=== PATIENT | male | born 1960 | race Caucasian/White ===

== ENCOUNTER 2020-12-29 10:49 | Inpatient (IN) | payer OTHER ==
[~2020-12-29] VITALS: Ht 180.3 cm; Wt 104.1 kg
[2020-12-29 10:51] VITALS: BP 75/50; BP 86/59
[2020-12-29 11:30] LABS: ABSOLUTE LYMPHOCYTES 0.5 thou/uL (0.8-5.3); ABSOLUTE MONOCYTES 0.7 thou/uL (0.0-1.2); BASOPHILS 0.4 %; HEMATOCRIT 45.1 % (42.0-52.0); HEMOGLOBIN 15.6 gm/dL (14.0-18.0); LYMPHOCYTES 8.1 %; MCH 31.9 pg (26.0-34.0); MCHC 34.5 g/dL (28.0-37.0); MCV 92.2 fL (80.0-100.0); MONOCYTES 10.6 %; MPV 7.6 fl. (7.2-11.1); NUCLEATED RBCS 0 /100WBC; PLATELET COUNT* 271 thou/uL (150-400); POLYS 80.9 %; RDW-CV 13.3 % (10.5-14.5); WBC 6.2 thou/uL (4.0-11.0)
[2020-12-29 11:44] LABS: POTASSIUM 3.9 mmol/L (3.5-5.1)
[2020-12-29 11:48] LABS: ALBUMIN 2.9 g/dL (3.4-5.0); TOTAL BILIRUBIN 0.4 mg/dL (<0.1-1.0); TOTAL PROTEIN 6.5 g/dL (6.4-8.2)
--- NOTE | 2020-12-29 13:13 | NUR ---
PT GIVEN LUNCH TRAY AT THIS TIME.
[2020-12-29 17:33] VITALS: BP 97/68
[2020-12-29 18:33] VITALS: BP 109/71
--- NOTE | 2020-12-29 19:29 | NUR ---
PT. ADMITTED TO FLOOR FROM ER, BP STABILIZED TO HIGH 100S SBP, MAP IN 80S. DENIES PAIN OR DISCOMFORT, O2 3L-SATS MID 90%, ADMISSION ASSSESSMENTS COMPLETE. CALL LIGHT AND PERSONAL BELONGINGS PLACED WITHIN REACH. PT. IN STABLE CONDITION, IN BED RESTING, AT SHIFT CHANGE.
[2020-12-29 19:30] VITALS: BP 111/84
[2020-12-30] VITALS: BP 128/74
[2020-12-30 04:00] VITALS: BP 131/61
--- NOTE | 2020-12-30 06:15 | NUR ---
PT SLEPT MOST OF SHIFT. ASSESSMENT DOCUMENTED. MEDS GIVEN PER E-MAR. IV PATENT, FLUIDS INFUSING. ISOLATION MAINTAINED. NO REPORTS OF PAIN. PT ABLE TO MAKE NEEDS KNOWN. WILL CONTINUE WITH PLAN OF CARE.
--- NOTE | 2020-12-30 07:16 | NUR ---
PT CONVERTED BACK TO SINUS RHYTHM ABOUT 0310 THIS AM.
[2020-12-30 07:21] LABS: URINE BILIRUBIN NEGATIVE (Negative); URINE BLOOD 1+ (Negative); URINE CLARITY CLEAR; URINE COLOR YELLOW; URINE GLUCOSE-RANDOM NEGATIVE (Negative); URINE KETONES NEGATIVE (Negative); URINE LEUKOCYTES-REFLEX NEGATIVE (Negative); URINE NITRITE-REFLEX NEGATIVE (Negative); URINE PROTEIN TRACE (Negative); URINE SPECIFIC GRAVITY 1.025 (1.005-1.030)
[2020-12-30 07:23] LABS: SQUAMOUS NONE SEEN /LPF (0-3); URINE RBC 0-2 Rare /HPF (0-2); URINE WBC-REFLEX None Seen /HPF (0-5)
[2020-12-30 07:24] LABS: CASTS None Seen /LPF (None Seen); CRYSTALS None Seen /LPF (None Seen); MUCUS None Seen strn/LPF (None Seen)
[2020-12-30 07:54] LABS: ABSOLUTE LYMPHOCYTES 0.7 thou/uL (0.8-5.3); ABSOLUTE MONOCYTES 0.6 thou/uL (0.0-1.2); ABSOLUTE NEUTROPHILS 3.7 thou/uL (1.6-8.1); BASOPHILS 0.2 %; HEMATOCRIT 40.9 % (42.0-52.0); HEMOGLOBIN 13.8 gm/dL (14.0-18.0); LYMPHOCYTES 13.1 %; MCH 31.2 pg (26.0-34.0); MCHC 33.7 g/dL (28.0-37.0); MCV 92.8 fL (80.0-100.0); MONOCYTES 11.8 %; MPV 7.5 fl. (7.2-11.1); NUCLEATED RBCS 0 /100WBC; PLATELET COUNT* 272 thou/uL (150-400); POLYS 74.9 %; RDW-CV 13.2 % (10.5-14.5)
[2020-12-30 08:00] VITALS: BP 106/78
[2020-12-30 08:39] LABS: ANION GAP 6 mmol/L (7-16); BUN 12 mg/dL (7-18); CALCIUM 7.8 mg/dL (8.5-10.1); CHLORIDE 102 mmol/L (98-107); CHOLESTEROL 104 mg/dL (<200); CO2 29 mmol/L (21-32); CREATININE 0.8 mg/dL (0.6-1.3); GLUCOSE 121 mg/dL (70-99); HDL CHOLESTEROL 36 mg/dL (>40); LDL CHOLESTEROL 51 mg/dL (<100); POTASSIUM 4.3 mmol/L (3.5-5.1); SODIUM 137 mmol/L (136-145); TC:HDL 2.9 Ratio (Not establshd); TRIGLYCERIDE 86 mg/dL (<150); VLDL 17 mg/dL (<40)
[2020-12-30 08:42] LABS: SERUM ASSESSMENT Clear
--- NOTE | 2020-12-30 10:39 | EKG ---
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 : 1960 Requested By: Rico Brown Order Number: [id number] MD: Aubrey Beltrán Measurements Intervals [place] Rate: 151 P: CT: QRS: 67 QRSD: 59 T: 257 QT: 300 QTc: 476 Interpretive Statements Atrial fibrillation Borderline repolarization abnormality Borderline prolonged QT interval No previous ECG available for comparison Electronically Signed On 12-30-2020 10:39:49 CDT by Aubrey Beltrán [email or web address] <ELECTRONICALLY SIGNED> By: Aubrey Beltrán MD, [facility] 12/30/20 1039 1105 1105 Aubrey Beltrán MD, [facility] /EPI
[2020-12-30 13:42] VITALS: BP 102/82
[2020-12-30 16:00] VITALS: BP 104/74
[2020-12-30 20:00] VITALS: BP 100/70
--- NOTE | 2020-12-30 20:00 | NUR ---
RECEIVED REPORT AND ASSUMED CARE OF PT, ASSESSMENT COMPLETED. PT SOA, HOB ELEVATED, O2 ON AT 2L/NC. HAVING OCC MOIST COUGH. TELEMETRY ON SHOWING SR. WILL CONT TO MONITOR AND ASSIST NEEDED.
[2020-12-31] VITALS: BP 102/59
[2020-12-31 05:12] LABS: HEMATOCRIT 38.1 % (42.0-52.0); HEMOGLOBIN 13.1 gm/dL (14.0-18.0); MCH 31.5 pg (26.0-34.0); MCHC 34.2 g/dL (28.0-37.0); MCV 91.8 fL (80.0-100.0); MPV 7.7 fl. (7.2-11.1); RBC 4.15 mil/uL (4.50-6.00); RDW-CV 12.8 % (10.5-14.5); WBC 7.5 thou/uL (4.0-11.0)
[2020-12-31 05:31] LABS: CALCIUM 8.1 mg/dL (8.5-10.1); CREATININE 0.8 mg/dL (0.6-1.3); POTASSIUM 4.1 mmol/L (3.5-5.1)
--- NOTE | 2020-12-31 05:54 | NUR ---
PT FLUSTRATED ABOUT BEING WOKE FREQ BETWEEN NURSING CHECKS AND IV MACHINE BEEPING. ALLOWED TO SLEEP LONGER AND DID NOT TAKE VS UNTIL LATE. TELEMETRY CONT TO SHOW SR. PT STILL SOA WITH HOB ELEVATED AND O2 ON. CONT HAVING MOIST OCC PROD COUGH. HS GOALS OF REST AND SAFETY ACHIEVED. HOURLY ROUNDING OBSERVED.
[2020-12-31 09:03] VITALS: BP 113/70
[2020-12-31 12:00] VITALS: BP 106/71
--- NOTE | 2020-12-31 13:42 | 2DMMODE ---
[place] [address] 2 D/M-MODE ECHOCARDIOGRAM Name: ZAIRE SINGER Room: [address] IN [facility]#: [id number] Admission: 12/29/20 Attend Phys: Zaire Powell Discharge: Date of : 60 Date of Service: 12/31/20 1342 Report #: [id number] THIS REPORT FOR: cc: FAM - No family physician/PCP FAM - No family physician/PCP Juventino Godfrey MD [facility] ~ APPROVED REPORT Study performed: 12/31/2020 11:40:11 EXAM: Comprehensive 2D, Doppler, and color-flow Echocardiogram Patient Location: In-Patient Room #: [facility] Status: routine BSA: 2.26 HR: 105 bpm BP: 102/59 mmHg Rhythm: NSR Other Information Study Quality: Good Indications Atrial Fibrillation 2D Dimensions IVSd: 11.79 (7-11mm) LVOT Diam: 20.80 (18-24mm) LVDd: 49.73 mm PWd: 10.84 (7-11mm) Ascending Ao: 29.67 (22-36mm) LVDs: 35.63 (25-40mm) Aortic Root: 34.92 mm Volumes Left Atrial Volume (Systole) LA ESV Index: 22.20 mL/m2 Aortic Valve AoV Peak Damaso.: 1.65 m/s AO Peak Gr.: 10.89 mmHg LVOT Max P.83 mmHg AO Mean Gr.: 5.89 mmHg LVOT Mean P.22 mmHg LVOT Max V: 1.10 m/s AO V2 VTI: 29.90 cm LVOT Mean V: 0.68 m/s DONNIE (VTI): 2.50 cm2 LVOT V1 VTI: 21.98 [place] [address] 2 D/M-MODE ECHOCARDIOGRAM Name: ZAIRE SINGER Room: [address] IN ..#: [id number] Admission: 12/29/20 Attend Phys: Zaire Powell Discharge: Date of : 60 Date of Service: 12/31/20 1342 Report #: [id number] Mitral Valve E/A Ratio: 1.28 MV Decel. Time: 166.47 ms MV E Max Damaso.: 0.88 m/s MV PHT: 48.27 ms MVA (PHT): 4.56 cm2 Pulmonary Valve PV Peak Damaso.: 1.01 m/s PV Peak Gr.: 4.12 mmHg Tricuspid Valve RAP Estimate: 5.00 mmHg TR Peak Gr.: 30.79 mmHg RVSP: 35.00 mmHg PA Pressure: 35.00 mmHg Left Ventricle The left ventricle is normal size. There is normal LV segmental wall motion. There is normal left ventricular wall thickness. Left ventricular systolic function is normal. The left ventricular ejection fraction is within the normal range. LVEF is 55-60%. The left ventricular diastolic function is normal. Right Ventricle The right ventricle is normal size. The right ventricular systolic function is normal. Atria The left atrium size is normal. The right atrium size is normal. Aortic Valve The aortic valve is normal in structure. No aortic regurgitation is present. There is no aortic valvular stenosis. Mitral Valve The mitral valve is normal in structure. Trace mitral regurgitation. No evidence of mitral valve stenosis. Tricuspid Valve The tricuspid valve is normal in structure. Trace tricuspid regurgitation. Mild pulmonary hypertension. Pulmonic Valve The pulmonary valve is normal in structure. There is no pulmonic [place] [address] 2 D/M-MODE ECHOCARDIOGRAM Name: ZAIRE SINGER Room: [address] IN [facility]#: [id number] Admission: 12/29/20 Attend Phys: Zaire Powell Discharge: Date of : 60 Date of Service: 12/31/20 1342 Report #: [id number] Great Vessels The aortic root is normal in size. IVC is normal in size and collapses >50% with inspiration. Pericardium There is no pericardial effusion. <Conclusion> The left ventricle is normal size. There is normal left ventricular wall thickness. Left ventricular systolic function is normal. The left ventricular ejection fraction is within the normal range. LVEF is 55-60%. The left ventricular diastolic function is normal. The right ventricle is normal size. The left atrium size is normal. The aortic valve is normal in structure. The mitral valve is normal in structure. The tricuspid valve is normal in structure. Trace tricuspid regurgitation. Mild pulmonary hypertension. IVC is normal in size and collapses >50% with inspiration. There is no pericardial effusion. There is normal LV segmental wall motion. <ELECTRONICALLY SIGNED> By: Juventino Godfrey MD, FACC 12/31/20 1342 1342 1342 Juventino Godfrey MD, FACC /INF
--- NOTE | 2020-12-31 13:51 | EKG ---
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: RAFAT : 1960 Requested By: Zaire Powell Order Number: [id number] Hortensia MD: Juventino Godfrey Measurements Intervals [place] Rate: 75 P: 84 IN: 143 QRS: 62 QRSD: 83 T: 58 QT: 368 QTc: 411 Interpretive Statements Sinus rhythm Low voltage, extremity leads Compared to ECG 12/29/2020 11:05:00 Low QRS voltage now present Atrial fibrillation no longer present Electronically Signed On 12-31-2020 13:50:59 CDT by Juventino Godfrey [email or web address] <ELECTRONICALLY SIGNED> By: Juventino Godfrey MD, [facility] 12/31/20 1350 1131 1131 Juventino Godfrey MD, [facility] /EPI
--- NOTE | 2020-12-31 14:02 | EKG ---
[place] [address] ELECTROCARDIOGRAM REPORT Name: SINGERZAIRE LOPEZ Room: [address] ADM IN [facility].#: [id number] Admission: 12/29/20 Attend Phys: Zaire Powell Discharge: Date of : 60 Date of Service: 12/31/20 1236 Report #: [id number] THIS REPORT FOR: //name// [facility] Test Date: 2020-12-31 Test Time: 12:36:34 Pat Name: ZAIRE SINGER Department: Room: [address] Gender: M Mobility Developer: IVANNA : 1960 Requested By: Akua Sexton Order Number: [id number] Hortensia MD: Juventino Godfrey Measurements Intervals [place] Rate: 73 P: 73 [place]: 141 QRS: 56 QRSD: 81 T: 59 QT: 385 QTc: 425 Interpretive Statements Sinus rhythm Low voltage, precordial leads Compared to ECG 12/30/2020 11:31:33 No significant changes Electronically Signed On 12-31-2020 14:02:02 CDT by Juventino Godfrey [email or web address] <ELECTRONICALLY SIGNED> By: Juventino Godfrey MD, FACC 12/31/20 1402 1236 1236 Juventino Godfrey MD, [facility] /EPI
[2020-12-31 16:00] VITALS: BP 146/83
--- NOTE | 2020-12-31 16:09 | NUR ---
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 PT USES 0 DME. PT IS UNINSURED. MED ASSIST COMPLETED MEDICAID ASSESSMENT AND PT DOES NOT QUALIFY FOR MEDICAID D/T HIS INCOME. CM WILL REMAIN AVAILABLE TO ASSIST AND FOLLOW NEEDED.
[2020-12-31 17:42] VITALS: BP 124/87; BP 127/77; BP 135/82
--- NOTE | 2020-12-31 18:02 | NUR ---
Pt received dose of Remdesivir this afternoon, and receiving 1 unit of convalescent plasma at this time. On O2 @ 3L per NC. VSS. 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 Updated pt's daughter (Francia Brownlee--[phone]) on pt's status per pt request. Dtr states she is director community health nursing. Will continue to monitor.
[2020-12-31 21:00] VITALS: BP 118/78
--- NOTE | 2020-12-31 21:00 | NUR ---
RECEIVED REPORT AT 1930 AND ASSUMED CARE OF PT, ASSESSMENT COMPLETED AT THIS TIME. PT HAVING A MOIST COUGH, O2 ON AT 3L/NC. BECOMES VERY DYSPNEIC WITH ANY ACTIVITY AND DECREASED O2 SAT'S. TELEMETRY ON SHOWING SR WITH PAC. PLASMA COMPLETED EARLIER WITHOUT INCIDENT. WILL CONT TO MONITOR AND ASSIST NEEDED.
[2021-01-01 04:00] VITALS: BP 120/70
[2021-01-01 05:58] LABS: HEMATOCRIT 37.2 % (42.0-52.0); HEMOGLOBIN 12.9 gm/dL (14.0-18.0); MCH 32.2 pg (26.0-34.0); MCHC 34.8 g/dL (28.0-37.0); MCV 92.4 fL (80.0-100.0); MPV 7.2 fl. (7.2-11.1); RBC 4.02 mil/uL (4.50-6.00); RDW-CV 12.8 % (10.5-14.5); WBC 8.3 thou/uL (4.0-11.0)
[2021-01-01 06:05] LABS: CALCIUM 8.2 mg/dL (8.5-10.1); CREATININE 0.7 mg/dL (0.6-1.3)
--- NOTE | 2021-01-01 06:10 | NUR ---
SLEPT WELL TONIGHT. PT CONT TO BE SOA WITH EXERTION. VOIDING PER URINAL. NO CHANGE IN ASSESSMENT. TELEMETRY CONT TO SHOW SR WITH PAC. HS GOALS OF REST, SAFETY AND OXYGENATION ACHIEVED. HOURLY ROUNDING OBSERVED.
[2021-01-01 08:40] VITALS: BP 108/75
[2021-01-01 11:19] VITALS: BP 101/66
[2021-01-01 12:00] VITALS: BP 109/79
--- NOTE | 2021-01-01 14:09 | EKG ---
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 01/01/21 1409 1005 1005 Juventino Godfrey MD, [facility] /EPI
--- NOTE | 2021-01-01 14:59 | NUR ---
PLAN OF CARE: PT COVID POSITIVE AND REMAINS ON IV ABT'S AND TELE STATUS. PT IS UNINSURED AND DOES NOT QUALIFY FOR MEDICAID D/T HIS INCOME. D/C PLANNING NEEDS FOR THIS PT REMAIN TBD AT THIS TIME. CM WILL REMAIN AVAILABLE TO ASSIST AND FOLLOW NEEEDED.
[2021-01-01 16:00] VITALS: BP 117/85
--- NOTE | 2021-01-01 18:45 | NUR ---
Rhythm per monitor oscillating between SR and Afib. HR when in Afib runs 100s-120s. BP has been 100s-120s/60s-70s. Cardiology aware, and has ordered metoprolol IV prn, though no doses given during this shift. Pt remains on Sotalol BID (see MAR). Pt reports he feels weak today, but up ad robby in room. O2 at 4L per NC, and humidifier added this morning. Pt did eat better today for breakfast and lunch, but states poor appetite this evening for supper. Encouraged to be up in chair, turn frequently, and cough/deep breathe about every 1-2 hours while awake. Cough productive of thick sputum at times. Will continue to monitor.
[2021-01-01 20:00] VITALS: BP 125/81
[2021-01-02] VITALS: BP 143/73
[2021-01-02 04:02] VITALS: BP 151/70
--- NOTE | 2021-01-02 06:20 | NUR ---
ASSUMED PT CARE AT APPROX. 1999. PT IS A/OX4. VSS. PT IS COVID+ AND IS ON CONTACT PRECAUTIONS. PT HAD INTERMITTENT AFIB W/ HR BETWEEN 90-120. PT IS ORDERED SOTOLOL BID, SEE EMAR. PT CONVERTED TO SR/ST DURING THE NOC. CARDIOLOGY HAS BEEN CONSULTED AND IS AWARE OF PT'S CARDIAC FUNCTION. PT IS ON 4L NC W/ HUMIDIFIER. PTS LUNG SOUNDS ARE DIMINISHED. PT HAS A PRODUCTIVE COUGH AND REPORTED THICK SPUTUM. PT IS UP AD ATIF IN ROOM. PT USES URINAL AT BEDSIDE. NO ACUTE FINDINGS NOTED DURING THIS SHIFT. PT HAS BEEN RESTING IN ROOM. NO COMPLAINTS VOICED. FALL PRECAUTIONS IN PLACE FOR SAFEY. HOURLY ROUNDS COMPLETE CHARTED. WILL CONT. TO MONITOR.
[2021-01-02 08:30] VITALS: BP 109/81
[2021-01-02 12:02] VITALS: BP 101/71
--- NOTE | 2021-01-02 16:02 | NUR ---
PLAN OF CARE: PT REMAINS TELE STATUS. PT CURREENTLY REQUIRES 4L OXYGEN. PT IS COVID POSITIVE. PT IS UNINSURED AND RESIDES IN [place] AND THIS MAY PRESENT A BARIER TO D/C IF HE SHOULD NEED ANY EQUIPMENT OR F/U SERVICES AT D/C. CM WILL REMAIN AVAILABLE TO ASSIST AND FOLLOW NEEDED.
[2021-01-02 16:13] VITALS: BP 111/75
--- NOTE | 2021-01-02 18:55 | NUR ---
Pt remains in SR with frequent PACs per monitor. IV abx orders changed this evening. Pt reports feeling a little better today than yesterday. No Afib noted per monitor this shift. VSS. O2 decreased from 4L to 3L per NC. Will continue to monitor.
[2021-01-02 20:00] VITALS: BP 124/91
--- NOTE | 2021-01-02 20:00 | NUR ---
RECEIVED REPORT AND ASSUMED CARE OF PT, ASSESSMENT COMPLETED. O2 ON AT 3L/NC, CONT TO BE SOA ON EXERTION. HAVING OCC MOIST PROD COUGH. TELEMETRY ON SHOWING A FIB/FLUTTER. WILL CONT TO MONITOR AND ASSIST NEEDED.
[2021-01-03] VITALS: BP 126/77
[2021-01-03 04:30] VITALS: BP 124/83
[2021-01-03 04:34] LABS: HEMATOCRIT 37.6 % (42.0-52.0); HEMOGLOBIN 12.9 gm/dL (14.0-18.0); MCH 31.9 pg (26.0-34.0); MCHC 34.3 g/dL (28.0-37.0); MCV 93.2 fL (80.0-100.0); MPV 7.4 fl. (7.2-11.1); RBC 4.03 mil/uL (4.50-6.00); RDW-CV 12.8 % (10.5-14.5); WBC 11.8 thou/uL (4.0-11.0)
[2021-01-03 05:16] LABS: CREATININE 0.8 mg/dL (0.6-1.3); POTASSIUM 3.8 mmol/L (3.5-5.1)
--- NOTE | 2021-01-03 06:36 | NUR ---
AWAKE FREQ TONIGHT. CONT HAVING MOIST COUGH. O2 SAT MAINTAINED ON 3L/NC. VOIDING WITHOUT DIFFICULTY. TELEMETRY SHOWING INITALLY A-FIB/FLUTTER BUT CONVERTED TO SR. HS GOALS OF REST AND SAFETY PARTICALLY ACHIEVED. HOURLY ROUNDING OBSERVED.
[2021-01-03 08:00] VITALS: BP 122/77
--- NOTE | 2021-01-03 13:56 | NUR ---
PLAN OF CARE: PT REMAINS TELE STATUS. PT CONTINUES TO NEED OXYGEN AT 3L. PHYSICIAN INFORMS OF CONCERNS FOR PT TO D/C AND DRIVE HIS 18 [address] TRUCK BACK TO [place] WITH HIS OXYGEN NEEDS. CM SPOKE TO THE PT TO DISCUSS THIS AND HE INFORMS THAT HE HAS AN OPEN [employer] COMP CASE AND THAT THEY ARE GOING TO COVER HIS HOSPITAL STAY AND D/C NEEDS. CM INFORMED THE CM UR NURSE OF THIS INFO WELL THE REFERENCE NUMBER AND CONTACT INFO. CM WILL REMAIN AVAILABLE TO ASSIST AND FOLLOW NEEDED. WORK COMP PHONE#: [phone] WORK COMP REF#: [id number]
[2021-01-03 16:22] VITALS: BP 112/81
--- NOTE | 2021-01-03 18:28 | NUR ---
I ASSUMED CARE OF THE PATIENT AT 0700. HE IS ALERT AND ORIENTED X4 AND IS UP AD ATIF. BED IS IN THE LOW LOCKED POSITION AND CALL LIGHT IS IN REACH. PATIENT NEEDS ARE MET IN HOURLY ROUNDING AND PAIN IS DENIED. HE IS PROGRESSING TOWARDS HIS GOAL. WE ARE UNABLE TO SUCCESSFULLY TITRATE OXYGEN TODAY. ISOLATION IS MAINTAINED. HE HAD A LARGE BM. HE REPOSITIONS HIMSELF. WILL CONTINUE TO MONITOR.
[2021-01-03 19:29] VITALS: BP 137/84
[2021-01-03 21:00] VITALS: BP 135/81
[2021-01-04] VITALS: BP 123/78
[2021-01-04 04:00] VITALS: BP 123/76
[2021-01-04 04:51] LABS: HEMOGLOBIN 12.4 gm/dL (14.0-18.0); MCH 32.6 pg (26.0-34.0); MCHC 35.5 g/dL (28.0-37.0); MCV 91.9 fL (80.0-100.0); MPV 7.3 fl. (7.2-11.1); RBC 3.81 mil/uL (4.50-6.00); RDW-CV 12.7 % (10.5-14.5); WBC 10.7 thou/uL (4.0-11.0)
[2021-01-04 05:06] LABS: CALCIUM 8.3 mg/dL (8.5-10.1); CREATININE 0.9 mg/dL (0.6-1.3); POTASSIUM 3.8 mmol/L (3.5-5.1)
--- NOTE | 2021-01-04 06:09 | NUR ---
Alert and oriented x 4. He has been in bed most of the shift. He used the urinal and has had a large amount of output. He did get up independently to the bathroom. He is on 3L n/c and has long tubing to reach the bathroom. he has been coughing at times but it sputum was not observed. He hasn't required anything for pain. Vitals stable, HRRR is NSR. He has slept intermittenly.
[2021-01-04 08:00] VITALS: BP 135/87
[2021-01-04 12:38] VITALS: BP 130/79
--- NOTE | 2021-01-04 15:57 | NUR ---
PLAN OF CARE: PHYSICIAN INFORMS OF PLAN TO WEAN PT'S O2 MUCH POSSIBLE. PT CURRENTLY ON 2L O2 VIA NC. PT WILL LIKELY NEED R.T. REST AND EXERCISE TESTING PRIOR TO D/C TO DETERMINE AMOUNT OF O2 NEEDED FOR PT. PT INFORMED OF THE NEED TO CONTACT HIS EMPLOYER TO DISCUSS HOW THEY CAN ASSIST HIM IN GETTING HOME AND HOW TO GET HIS TRUCK HOME IF HE IS UNABLE TO WEAN FROM O2. CM WILL REMAIN AVAILABLE TO ASSIST AND FOLLOW NEEDED.
[2021-01-04 17:01] VITALS: BP 108/72
--- NOTE | 2021-01-04 18:07 | NUR ---
RECEIVED REPORT AROUND 0715. ASSUMED CARE. VS AND ASSESSMENT CHARTED. IV INTACT LEFT UPPER ARM MIDLINE AND RIGHT FOREARM. HEART MONITOR ATTACHED SR WITH PAC'S. PT UP ADLIB. O2 TURNED DOWN TO 1L. MEDS GIVEN PER SEP. HOURLY ROUNDING PERFORMED. ISOLATION INTACT. COVID POSITIVE. NO PAIN THIS SHIFT. SHOWER TAKEN THIS SHIFT. CALL LIGHT WITH IN REACH. WILL CONTINUE TO MONITOR.
[2021-01-04 20:40] VITALS: BP 138/80
[2021-01-05 00:32] VITALS: BP 137/90
--- NOTE | 2021-01-05 01:58 | NUR ---
ASSUMED CARE OF PT AT 1900. PT IS ALERT AND ORIENTED. VSS. PERRLA. PT IS ON 1 LITER O2. PT IS IN SINUS ARRYTHMIA ON THE TELEMETRY. PT IS RESTING COMFORTABLY IN BED. RESPIRATIONS ARE EVEN AND NONLABORED. WILL CONTINUE TO MONITOR PT.
[2021-01-05 04:44] VITALS: BP 123/80
[2021-01-05 05:31] LABS: HEMATOCRIT 40.9 % (42.0-52.0); HEMOGLOBIN 13.9 gm/dL (14.0-18.0); MCH 31.7 pg (26.0-34.0); MCHC 34.1 g/dL (28.0-37.0); MCV 92.9 fL (80.0-100.0); MPV 7.4 fl. (7.2-11.1); RBC 4.4 mil/uL (4.50-6.00); RDW-CV 13.2 % (10.5-14.5); WBC 10.4 thou/uL (4.0-11.0)
[2021-01-05 05:54] LABS: CALCIUM 8.5 mg/dL (8.5-10.1); CREATININE 0.8 mg/dL (0.6-1.3); POTASSIUM 3.9 mmol/L (3.5-5.1)
[2021-01-05 08:00] VITALS: BP 119/97
--- NOTE | 2021-01-05 12:15 | NUR ---
METOPROLOL GIVEN PER ORDERS, HR IRREGULAR, RATE IN THE 130'S, PT DENIES SYMPTOMS. BILAT FEED COLD, PALE, TOES DUSKY, ABLE TO DOPPLER PEDAL PULSE ON LEFT, UNABLE TO DOPPLER ON RIGHT, SKIN BLANCHABLE, PT STATES TINGLING, DR HAYNES MADE AWARE, WILL CONTINUE TO MONITOR.
[2021-01-05 14:13] VITALS: BP 119/80
[2021-01-05 18:48] VITALS: BP 121/88
[2021-01-05 19:55] VITALS: BP 122/92
[2021-01-06] VITALS: BP 129/87
[2021-01-06 04:00] VITALS: BP 117/90
--- NOTE | 2021-01-06 04:18 | NUR ---
ASSUMED CARE OF PT AT 1900. PT IS ALERT AND ORIENTED. VSS. PERRLA. NO COMPLAINTS OF PAIN. PT IS IN A FIB ON THE TELEMETRY. PT IS RESTING COMFORTABLY IN BED. RESPIRATIONS ARE EVEN AND NONLABORED. WILL CONTINUE TO MONITOR PT.
[2021-01-06 04:45] LABS: HEMOGLOBIN 14.2 gm/dL (14.0-18.0); MCH 31.5 pg (26.0-34.0); MCHC 33.8 g/dL (28.0-37.0); MCV 93.2 fL (80.0-100.0); MPV 7.5 fl. (7.2-11.1); RBC 4.5 mil/uL (4.50-6.00); WBC 14.3 thou/uL (4.0-11.0)
[2021-01-06 05:13] LABS: CALCIUM 8.6 mg/dL (8.5-10.1); CREATININE 0.8 mg/dL (0.6-1.3); POTASSIUM 4.2 mmol/L (3.5-5.1)
[2021-01-06 09:00] VITALS: BP 107/83
[2021-01-06 13:47] VITALS: BP 107/79
--- NOTE | 2021-01-06 18:18 | NUR ---
PT. AOX4, VSS, COVID 19 ISO, CALL LIGHT AND PERSONAL BELONGINGS PLACED WITHIN REACH. PT. TOLEARTING WEANING OFF O2 FROM 2L TO ROOM AIR, SATS 91-93%. PT'S HR FLUCTUATED IN THE 90-120 BUT STAYING CONSISTENT IN UPPER 90S, ASYMTOMATIC AND NOT A NEW ONSET. WILL CONTINUE TO MONITOR. PT. IN ROOM, TALKING ON PHONE WITH DAUGHTER, IN NO APPARENT DISTRESS, AT SHIFT CHANGE.
[2021-01-06 19:38] VITALS: BP 110/73
[2021-01-06 19:50] VITALS: BP 114/80
[2021-01-07] VITALS: BP 105/68
[2021-01-07 04:00] VITALS: BP 104/77
[2021-01-07 04:57] LABS: CALCIUM 8.8 mg/dL (8.5-10.1); CREATININE 0.9 mg/dL (0.6-1.3); POTASSIUM 4.6 mmol/L (3.5-5.1)
[2021-01-07 05:01] LABS: HEMATOCRIT 48.4 % (42.0-52.0); HEMOGLOBIN 15.5 gm/dL (14.0-18.0); MCH 31.4 pg (26.0-34.0); MCHC 32.1 g/dL (28.0-37.0); MCV 97.7 fL (80.0-100.0); MPV 8.3 fl. (7.2-11.1); RBC 4.95 mil/uL (4.50-6.00); RDW-CV 13.5 % (10.5-14.5); WBC 13.8 thou/uL (4.0-11.0)
[2021-01-07 08:00] VITALS: BP 110/71
--- NOTE | 2021-01-07 11:45 | NUR ---
PLAN OF CARE: PHYSICIAN INFORMS OF PLAN FOR THE PT TO D/C HOME TODAY PENDING R.T. REST AND EXERCISE TESTING. CM WILL REMAIN AVAILABLE TO ASSIST AND FOLLOW NEEDED.
[2021-01-07 13:59] VITALS: BP 116/73
[2021-01-07] MEDS ORDERED: SORINE 80 MG TA80 M1 PO (14:54)
[2021-01-07] MEDS ORDERED: METOPROLOL5 MG/5 M2 IVPUSH (14:54)
[2021-01-07 15:36] VITALS: BP 116/73
--- NOTE | 2021-01-07 18:12 | NUR ---
RECEIVED REPORT AROUND 0715. ASSUMED CARE. VS AND ASSESSMENT CHARTED. IV INTACT RIGHT FOREARM. HEART MONITOR ATTACHED AT AFIB/SR. SR MOST OF SHIFT. REST AND EXERCISE DONE. NO REQUIREMENT OF O2. D/C ORDERS RECEIVED. IV TAKEN OUT. HEART MONITOR OFF. DISCHARGE PAPERWORK GONE OVER WITH PT. COMMUNICATED UNDERSTANDING. PT LEFT VIA AMBULATORY OFF UNIT AROUND 1615 WITH ALL BELONGINGS AND NURSING STAFF.
== END 2021-01-07 18:15 | disposition home or self-care (01) | DRG 177 ==
LOC: M.ERS 10:49 → M.2W 12:12 → M.TBA-ER 12:12 → M.2W 17:51
PROVIDERS: Family Medicine; Internal Medicine; ADMIT Internal Medicine; ATTEND Internal Medicine
PROC: B54NZZA Ultrasonography of Left Upper Extremity Veins, Guidance (ICD-10-PCS; principal; 2020-12-31)
PROC: XW13325 Transfusion of Convalescent Plasma (Nonautologous) into Peripheral Vein, Percutaneous Approach, New Technology Group 5 (ICD-10-PCS; principal; 2020-12-31)
PROC: XW033E5 Introduction of Remdesivir Anti-infective into Peripheral Vein, Percutaneous Approach, New Technology Group 5 (ICD-10-PCS; principal; 2020-12-31)
PROC: 05HF33Z Insertion of Infusion Device into Left Cephalic Vein, Percutaneous Approach (ICD-10-PCS; principal; 2020-12-31)
DX: U07.1 COVID-19 (principal); J12.82 Pneumonia due to coronavirus disease 2019; J96.01 Acute respiratory failure with hypoxia; K92.2 Gastrointestinal hemorrhage, unspecified; N17.9 Acute kidney failure, unspecified; F17.210 Nicotine dependence, cigarettes, uncomplicated; K52.9 Noninfective gastroenteritis and colitis, unspecified; I48.0 Paroxysmal atrial fibrillation; E86.0 Dehydration; Z91.030 Bee allergy status